=== PATIENT | female | born 1995 | race African-American/Black ===

== ENCOUNTER 2021-02-25 00:52 | Emergency (ER) | payer OTHER ==
[~2021-02-25] VITALS: Ht 165.1 cm; Wt 89.8 kg
[~2021-02-25 00:52] MED LIST: ACETAMINOPHEN-1 EAC1 PO; AZITHROMYCIN PO; BACTROBAN NASAL1 GM NASAL; CEPHALEXIN 500500 M3 PO; DICLEGIS DR 101 EACH PO; IBUPROFEN 600600 M1 PO; LORATIDINE 10 M10 M1 PO; PENICILLIN VK500 MG PO; STERILE SALINE126 ML NS; TOBREX5 ML OP; TRINATE TABLET1 TAB PO
[2021-02-25 02:13] VITALS: BP 99/60
== END 2021-02-25 02:13 | disposition home or self-care (01) ==
LOC: M.ERS 00:52
DX: J06.9 Acute upper respiratory infection, unspecified (principal); Z20.822 Contact with and (suspected) exposure to COVID-19; R43.0 Anosmia; R43.2 Parageusia; F12.90 Cannabis use, unspecified, uncomplicated; Z79.899 Other long term (current) drug therapy

== ENCOUNTER 2021-07-04 19:07 | Emergency (ER) | payer OTHER ==
[~2021-07-04] VITALS: Ht 167.6 cm; Wt 87.5 kg
[2021-07-04 19:27] LABS: URINE BLOOD 3+ (Negative); URINE GLUCOSE-RANDOM NEGATIVE (Negative); URINE KETONES TRACE (Negative); URINE LEUKOCYTES-REFLEX NEGATIVE (Negative); URINE NITRITE-REFLEX NEGATIVE (Negative); URINE PROTEIN 2+ (Negative); URINE SPECIFIC GRAVITY 1.025 (1.005-1.030)
[2021-07-04 19:28] LABS: ICTOTEST (BILI CONFIRMATORY) Negative (Negative); URINE BILIRUBIN 1+ (Negative); URINE CLARITY CLOUDY; URINE COLOR RED
[2021-07-04 19:30] LABS: SQUAMOUS >10 Many /LPF (0-3)
[2021-07-04 19:32] LABS: URINE RBC 3-10 Few /HPF (0-2); URINE WBC-REFLEX 0-5 Rare /HPF (0-5)
[2021-07-04 19:33] LABS: BACTERIA-REFLEX 1-9 Few /HPF (None Seen); CASTS None Seen /LPF (None Seen); CRYSTALS None Seen /LPF (None Seen); MUCUS 0-3 Light strn/LPF (None Seen)
[2021-07-04 19:35] LABS: AMP/METHAMP Negative (Negative); BARBITURATES Negative (Negative); BENZODIAZEPINES Negative (Negative); COCAINE Negative (Negative); METHADONE Negative (Negative); OPIATES Negative (Negative); PCP Negative (Negative); THC POSITIVE (Negative)
[2021-07-04 20:26] LABS: ABSOLUTE EOSINOPHILS 0.2 thou/uL (0.0-0.7); ABSOLUTE MONOCYTES 0.6 thou/uL (0.0-1.2); ABSOLUTE NEUTROPHILS 2.3 thou/uL (1.6-8.1); BASOPHILS 0.7 %; EOSINOPHILS 4.3 %; HEMOGLOBIN 12.8 gm/dL (12.0-15.0); LYMPHOCYTES 39.2 %; MCH 32.4 pg (26.0-34.0); MCHC 34.5 g/dL (28.0-37.0); MONOCYTES 11.5 %; NUCLEATED RBCS 0 /100WBC; PLATELET COUNT* 244 thou/uL (150-400); POLYS 44.3 %; RBC 3.94 mil/uL (4.20-5.00); RDW-CV 12.9 % (10.5-14.5); WBC 5.1 thou/uL (4.0-11.0)
[2021-07-04 20:34] LABS: CALCIUM 8.8 mg/dL (8.5-10.1); CREATININE 0.8 mg/dL (0.6-1.3); POTASSIUM 3.6 mmol/L (3.5-5.1)
[2021-07-04 20:38] LABS: ALBUMIN 3.7 g/dL (3.4-5.0); MAGNESIUM 1.8 mg/dL (1.8-2.4); TOTAL BILIRUBIN 0.7 mg/dL (<0.1-1.0); TOTAL PROTEIN 7.4 g/dL (6.4-8.2)
[2021-07-04 21:51] VITALS: BP 121/70
--- NOTE | 2021-07-05 09:25 | EKG ---
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
== END 2021-07-04 21:51 | disposition home or self-care (01) ==
LOC: M.ERS 19:07
PROVIDERS: Emergency Medicine
DX: R53.83 Other fatigue (principal); Z20.822 Contact with and (suspected) exposure to COVID-19; R07.89 Other chest pain; R10.13 Epigastric pain

== ENCOUNTER 2021-10-28 19:11 | Emergency (ER) | payer OTHER ==
[~2021-10-28] VITALS: Ht 165.1 cm; Wt 89.4 kg
[2021-10-28 19:21] VITALS: BP 132/73
--- NOTE | 2021-10-29 09:47 | EKG ---
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 <ELECTRONICALLY SIGNED> By: Kenny Jorge MD, FAC 10/29/21 0947 25 25 Kenny Jorge MD, [facility] /EPI
== END 2021-10-28 21:50 | disposition left against medical advice (07) ==
LOC: M.ERS 19:11
DX: R07.89 Other chest pain (principal); R06.02 Shortness of breath; Z53.21 Procedure and treatment not carried out due to patient leaving prior to being seen by health care provider